=== PATIENT | female | born 1995 | race African-American/Black ===

== ENCOUNTER 2016-12-17 09:46 | Emergency (ER) | payer OTHER ==
[~2016-12-17] VITALS: Ht 175.3 cm; Wt 89.8 kg
[2016-12-17 09:50] VITALS: BP 119/76
--- NOTE | 2016-12-17 09:57 | NUR ---
Patient ambulated to bed 04.
--- NOTE | 2016-12-17 10:10 | NUR ---
Dr. Edmonds evaluating patient at bedside.
--- NOTE | 2016-12-17 10:15 | NUR ---
PATIENT PRESENTS TO ED WITH c/o rectal bright red blood/ pain x 1 yr on-off denies trauma constipation, admits strains upon defecation hx---gallstones rx----none DENIES N/V/D; SKIN IS PINK/WARM/DRY; AAOX4 WITH EVEN AND STEADY GAIT; LUNGS CLEAR BL; HR EVEN AND REGULAR; PT DENIES ANY FEVER, CP, SOB, OR COUGH AT THIS TIME; PATIENT STATES PAIN OF 7/10 AT THIS TIME; VSS; PATIENT POSITIONED FOR COMFORT; HOB ELEVATED; BEDRAILS UP X2; BED DOWN. ER MD MADE AWARE OF PT STATUS.
[2016-12-17] MEDS ORDERED: NACL 0.9% 1,000 ML IV SCH (10:16)
[2016-12-17] MEDS ORDERED: FAMOTIDINE 20 MG/2 ML VIAL IVP ONE (10:20)
[2016-12-17] MEDS ORDERED: KETOROLAC 30 MG/ML VIAL IVP ONE (10:20)
[2016-12-17] MEDS ORDERED: ONDANSETRON 4 MG/2 ML VIAL IVP ONE (10:20)
[2016-12-17 10:34] LABS: EOSINOPHILS # (AUTO) 0.1 K/uL (0-0.4); MONOCYTES # (AUTO) 0.3 K/uL (0.8-1.0)
[2016-12-17 10:44] LABS: ANION GAP 10.2 (8-16); BASOPHILS # (AUTO) 0.1 K/uL (0.00-0.22); BASOPHILS % (AUTO) 1.6 % (0.0-2.0); CALCIUM 8.9 mg/dL (8.5-10.1); CREATININE 0.9 mg/dL (0.6-1.3); EOSINOPHILS % (AUTO) 1.9 % (0.0-4.0); HEMATOCRIT 39.8 % (36-48); HEMOGLOBIN 12.9 g/dL (12.0-16.0); LYMPHOCYTES # (AUTO) 2.3 K/uL (2.5-16.5); LYMPHOCYTES % (AUTO) 39.4 % (20.5-51.1); MEAN CORPUSCULAR HEMOGLOBIN 28 pg (27-31); MEAN CORPUSCULAR HGB CONC 33 g/dL (33-37); MEAN CORPUSCULAR VOLUME 88 fL (80-94); MONOCYTES % (AUTO) 4.7 % (1.7-9.3); NEUTROPHILS % (AUTO) 52.4 % (42.2-75.2); PLATELET COUNT (AUTO) 304 K/uL (140-450); POTASSIUM 4.2 mmol/L (3.5-5.1); RED BLOOD CELL COUNT(AUTO) 4.55 MIL/uL (4.20-5.40); RED CELL DISTRIBUTION WIDTH 12.7 % (11.6-13.7); WHITE BLOOD COUNT (AUTO) 5.8 K/uL (4.8-10.8)
[2016-12-17 10:50] LABS: ALBUMIN 3.9 g/dL (3.4-5.0); TOTAL BILIRUBIN 0.3 mg/dL (0.0-1.0)
[2016-12-17 11:08] LABS: APPEARANCE,URINE CLEAR (CLEAR); LEUKOCYTE ESTERASE ,URINE NEGATIVE (NEGATIVE); PH,URINE 6.5 (5.0-9.0); UGLUCOSE NEGATIVE (NEGATIVE)
[2016-12-17 11:25] LABS: COLOR,URINE YELLOW (YELLOW)
[2016-12-17 11:26] LABS: BILIRUBIN,URINE NEGATIVE (NEGATIVE); BLOOD, URINE NEGATIVE (NEGATIVE); ICTOTEST NEGATIVE (NEGATIVE); PROTEIN,URINE NEGATIVE (NEGATIVE)
[2016-12-17 11:27] LABS: NITRITE, URINE NEGATIVE (NEGATIVE); UROBILINOGEN,URINE 0.2 EU/dL (0.2 - 1)
[2016-12-17 11:34] LABS: BACTERIA,URINE 0-2 (RARE) /HPF (None Seen); RBC,URINE NONE SEEN /HPF (0-5); SQUAMOUS EPITHELIAL CELL,UR 0-3 (FEW) /LPF (0-3 (FEW)); WBC,URINE 0-5 (RARE) /HPF (0-5)
[2016-12-17 12:51] VITALS: BP 121/81
--- NOTE | 2016-12-17 12:51 | NUR ---
Patient discharged with v/s stable. Written and verbal after care instructions given and explained. Patient alert, oriented and verbalized understanding of instructions. Ambulatory with steady gait. All questions addressed prior to discharge. ID band removed. Patient advised to follow up with PMD. Rx of TYLENOL, COLACE, ANUSOL given. Patient educated on indication of medication including possible reaction and side effects. Opportunity to ask questions provided and answered.
== END 2016-12-17 12:51 | disposition home or self-care (01) ==
LOC: MED 09:46
DX: K59.4 Anal spasm (principal); K62.89 Other specified diseases of anus and rectum
CPT/HCPCS: 36415; 80053; 81001; 81025; 82150; 83690; 85025; 96361; 96374; 96375; 99284; J1885; J2405; J3490; J7030

== ENCOUNTER 2021-04-26 14:26 | Emergency (ER) | payer MEDICAID, OTHER ==
[~2021-04-26] VITALS: Ht 170.2 cm; Wt 94.8 kg
[2021-04-26 14:44] VITALS: BP 132/77
--- NOTE | 2021-04-26 14:59 | NUR ---
DR HANKS EXAMINING PT IN CHAIR C
[2021-04-26] MEDS ORDERED: CIPR500T4 PO (15:16)
[2021-04-26] MEDS ORDERED: NAPR-54 PO (15:16)
[2021-04-26] MEDS ORDERED: ACET-8386 PO (15:16)
[2021-04-26] MEDS ORDERED: OFLO5SOL27 RIGHT EAR (15:16)
--- NOTE | 2021-04-26 15:20 | NUR ---
25 Y/O FEMALE C/O INTERMITTENT R EAR PAIN FOR 1 YEAR. PT REPORTS SHE WAS VISITING [place] LAST WEEK WHEN PAIN STARTED X6 DAYS AGO. PT REPORTS RECURRENT EAR INFECTIONS X1 YR. PT REPORTS PAIN STARTED IN L EAR TODAY, STATED SHE PUT PEROXIDE IN L EAR WHICH RESOLVED THE PAIN. SHE ALSO PUT PEROXIDE IN R EAR WHICH DID NOT HELP. PT REPORTS PAIN RADIATES TO R SIDE OF JAW. +DRAINAGE, +TENDER TO TOUCH. PT HAS NOTICED DECREASED HEARING IN R EAR. PT A/O X4 WITH EVEN AND UNLABORED RESPIRATIONS. PMH: DENIES NKDA
[2021-04-26] MEDS ORDERED: IBUPROFEN 600 MG TAB ONE (15:22)
--- NOTE | 2021-04-26 15:22 | NUR ---
Patient discharged with v/s stable. Written and verbal after care instructions ABOUT OTIRIS EXTERNA given and explained. Patient alert, oriented and verbalized understanding of instructions. Ambulatory with steady gait. All questions addressed prior to discharge. ID band removed. Patient advised to follow up with PMD. Rx of NORCO 5-325MG, CIPRO, NAPROXEN, AND OFLOXACIN given. Patient educated on indication of medication including possible reaction and side effects. Opportunity to ask questions provided and answered.
[2021-04-26] MEDS ORDERED: IBUPROFEN 600 MG TAB PO ONE (15:25)
== END 2021-04-26 15:22 | disposition home or self-care (01) ==
LOC: MED 14:26
DX: H60.91 Unspecified otitis externa, right ear (principal); Z79.899 Other long term (current) drug therapy
CPT/HCPCS: 99283

== ENCOUNTER 2021-07-05 14:04 | Emergency (ER) | payer MEDICAID ==
[~2021-07-05] VITALS: Ht 170.2 cm; Wt 98.9 kg
[~2021-07-05 14:04] MED LIST: ACET-8386 PO; CIPR500T4 PO; NAPR-54 PO; OFLO5SOL27 RIGHT EAR
[2021-07-05 14:11] VITALS: BP 137/83
[2021-07-05 15:15] LABS: BASOPHILS # (AUTO) 0.1 K/uL (0.00-0.22); BASOPHILS % (AUTO) 0.9 % (0.0-2.0); EOSINOPHILS # (AUTO) 0.1 K/uL (0-0.4); HEMATOCRIT 35.1 % (36-48); HEMOGLOBIN 11.7 g/dL (12.0-16.0); LYMPHOCYTES # (AUTO) 1.8 K/uL (2.5-16.5); LYMPHOCYTES % (AUTO) 27.4 % (20.5-51.1); MEAN CORPUSCULAR HEMOGLOBIN 28 pg (27-31); MEAN CORPUSCULAR HGB CONC 33 g/dL (33-37); MEAN CORPUSCULAR VOLUME 84.9 fL (80-94); MONOCYTES # (AUTO) 0.4 K/uL (0.8-1.0); MONOCYTES % (AUTO) 5.6 % (1.7-9.3); NEUTROPHILS # (AUTO) 4.2 K/uL (1.8-7.7); NEUTROPHILS % (AUTO) 64.1 % (42.2-75.2); PLATELET COUNT (AUTO) 291 K/uL (140-450); RED BLOOD CELL COUNT(AUTO) 4.14 MIL/uL (4.20-5.40); RED CELL DISTRIBUTION WIDTH 14.4 % (11.6-13.7); WHITE BLOOD COUNT (AUTO) 6.6 K/uL (4.8-10.8)
[2021-07-05 15:33] LABS: ALBUMIN 3.4 g/dL (3.4-5.0); CARBON DIOXIDE 26.2 mmol/L (21-32); CREATININE 0.8 mg/dL (0.6-1.3); POTASSIUM 4.2 mmol/L (3.5-5.1); TOTAL BILIRUBIN 0.3 mg/dL (0.0-1.0)
[2021-07-05] MEDS ORDERED: NITR100C7 PO (17:06)
[2021-07-05] MEDS ORDERED: ACET-10509 PO (17:06)
--- NOTE | 2021-07-05 17:25 | NUR ---
PT SEEN AND TREATED BY DR HANKS, NO NURSING INTERVENTIONS RENDERED
[2021-07-05 17:26] VITALS: BP 115/54
--- NOTE | 2021-07-05 17:26 | NUR ---
Patient discharged with v/s stable. Written and verbal after care instructions ABOUT THREATENED MISCARRIAGE, FIRST TRIMESTER OF , AND URINARY TRACT INFECTION given and explained. Patient alert, oriented and verbalized understanding of instructions. Ambulatory with steady gait. All questions addressed prior to discharge. ID band removed. Patient advised to follow up with PMD. Rx of TYLENOL EXTRA STRENGTH given. Patient educated on indication of medication including possible reaction and side effects. Opportunity to ask questions provided and answered.
== END 2021-07-05 17:26 | disposition home or self-care (01) ==
LOC: MED 14:04
DX: O20.0 Threatened abortion (principal); O23.41 Unspecified infection of urinary tract in pregnancy, first trimester; Z3A.01 Less than 8 weeks gestation of pregnancy; Z79.899 Other long term (current) drug therapy
CPT/HCPCS: 36415; 76801; 80053; 81002; 81025; 84702; 85025; 86900; 86901; 99284; Q0092

== ENCOUNTER 2021-11-18 20:51 | Emergency (ER) | payer MEDICAID ==
[~2021-11-18] VITALS: Ht 170.2 cm; Wt 100.7 kg
[~2021-11-18 20:51] MED LIST changes: +ACET-10509 PO; +NITR100C7 PO
[2021-11-18 21:40] VITALS: BP 131/71
--- NOTE | 2021-11-18 22:20 | NUR ---
EMT AT BEDSIDE EAR IRRIGATION
--- NOTE | 2021-11-18 22:33 | NUR ---
26 Y/O F BIBS W C/O OF RIGHT EAR PAIN X 3 DAYS, "FEELS CLOGGED AND MY FACE IS TENDER IN THAT AREA." PT PAIN 09/16 AT THIS TIME. NO DISCHARGE NOTED. PMH: DENIES MEDS: DENIES NKDA
[2021-11-18] MEDS ORDERED: CIPR7.5S OT (22:52)
[2021-11-18 22:56] VITALS: BP 131/71
--- NOTE | 2021-11-18 22:56 | NUR ---
ERMD AT BEDSIDE PROVIDING INFORMATION FOR PATIENT
--- NOTE | 2021-11-18 22:58 | NUR ---
Patient discharged. Written and verbal after care instructions given and explained. Patient alert, oriented and verbalized understanding of instructions. Ambulatory with steady gait. All questions addressed prior to discharge. ID band removed. Patient advised to follow up with PMD. Rx of CIPRODEX OTIC SUSPENSION given. Patient educated on indication of medication including possible reaction and side effects. Opportunity to ask questions provided and answered.
== END 2021-11-18 22:58 | disposition home or self-care (01) ==
LOC: MED 20:51
DX: H60.93 Unspecified otitis externa, bilateral (principal); H61.23 Impacted cerumen, bilateral; Z79.899 Other long term (current) drug therapy
CPT/HCPCS: 99283

== ENCOUNTER 2022-02-15 01:10 | Emergency (ER) | payer MEDICAID ==
[~2022-02-15 01:10] MED LIST changes: +CIPR7.5S OT
--- NOTE | 2022-02-15 01:40 | NUR ---
PATIENT LEFT WITHOUT BEING SEEN BY DR. Norman. NO FURTHER CARE PROVIDED FOR PATIENT.
== END 2022-02-15 01:40 | disposition left against medical advice (07) ==
LOC: MED 01:10
DX: Z04.71 Encounter for examination and observation following alleged adult physical abuse (principal); Z53.21 Procedure and treatment not carried out due to patient leaving prior to being seen by health care provider

== ENCOUNTER 2023-11-02 23:16 | Emergency (ER) | payer MEDICAID, OTHER ==
[~2023-11-02] VITALS: Ht 170.2 cm; Wt 102.5 kg
[~2023-11-02 23:16] MED LIST changes: -ACET-8386 PO; +ACET-8905 PO; +NAPR-337 PO; -NAPR-54 PO
[2023-11-02 23:23] VITALS: BP 111/84; PULSE 78; RESP 16; TEMP 97.5; O2SAT 100
[2023-11-02 23:39] VITALS: BP 111/84; PULSE 78; RESP 16; TEMP 97.5; O2SAT 100
[2023-11-03 00:02] LABS: FLU A ANTIGEN negative (NEGATIVE); FLU B ANTIGEN NEGATIVE (NEGATIVE)
[2023-11-03] MEDS: ALUMINUM HYD/MAG/SIMETHICONE 30 ML UDC PO ONE (00:08)
[2023-11-03] MEDS: IBUPROFEN 600 MG TAB PO ONE (00:08)
[2023-11-03] MEDS: ONDANSETRON 4 MG ODT PO ONE (00:09)
[2023-11-03] MEDS ORDERED: FAMO-90 PO (00:29)
[2023-11-03] MEDS ORDERED: IBUP-2218 PO (00:29)
[2023-11-03] MEDS ORDERED: ONDA-188 SL (00:29)
== END 2023-11-03 00:40 | disposition home or self-care (01) ==
LOC: MED 23:16
DX: K21.9 Gastro-esophageal reflux disease without esophagitis (principal); Z20.822 Contact with and (suspected) exposure to COVID-19; B34.9 Viral infection, unspecified; Z79.899 Other long term (current) drug therapy
CPT/HCPCS: 81002; 81025; 87081; 87426; 87804; 99284; Q0162